=== PATIENT | female | born 1955 | race Caucasian/White ===

== ENCOUNTER 2017-01-17 06:24 | Day surgery (SDC) | payer OTHER ==
[~2017-01-17] VITALS: Ht 175.3 cm; Wt 84.6 kg
[~2017-01-17 06:24] MED LIST: ASPI81TA82 PO; LEXA5TAB PO; LORA-392 PO; MEVA40TA6 PO; NAPR250T57 PO; SPIRCAP INH; TRAM100T19 PO
[2017-01-17] MEDS ORDERED: NS 1000P @30 MLS/HR (KVO) IV SCH (07:00)
[2017-01-17] MEDS ORDERED: ESCI5TAB PO (07:41)
[2017-01-17] MEDS ORDERED: TRAM50TA PO (07:41)
[2017-01-17] MEDS ORDERED: MULT1TAB46 PO (07:41)
[2017-01-17] MEDS ORDERED: NAPR500T PO (07:41)
[2017-01-17] MEDS ORDERED: ASPI81TA11 PO (07:41)
[2017-01-17] MEDS ORDERED: FLUT1SPR14 NASAL (07:41)
[2017-01-17] MEDS ORDERED: LORA1TAB12 PO (07:41)
[2017-01-17] MEDS ORDERED: LOVA40TA PO (07:41)
[2017-01-17] MEDS ORDERED: CHOL5000 PO (07:41)
[2017-01-17] MEDS ORDERED: VENTAER INH (07:41)
[2017-01-17] MEDS ORDERED: RANI150T PO (07:41)
[2017-01-17] MEDS ORDERED: UMEC1INH INH (07:41)
[2017-01-17] MEDS ORDERED: CYCL1TAB29 PO (07:41)
[2017-01-17 07:43] VITALS: BP 137/81; PULSE 68; RESP 18; TEMP 98.1; O2SAT 99
[2017-01-17] MEDS ORDERED: HEPARIN-NS/PF INJ 500 ML ONE (08:26)
[2017-01-17] MEDS ORDERED: NITROGLYCERIN INJ 5 ML ONE (08:28)
[2017-01-17] MEDS ORDERED: HEPARIN SODIUM - IV 10,000 UNITS/10 ML VIAL ONE (08:28)
[2017-01-17] MEDS ORDERED: MIDAZOLAM HCL 2 MG/2 ML VIAL ONE (08:28)
[2017-01-17] MEDS ORDERED: BACITRACIN OINT 0.9 GM PKT TOP ONE (09:15)
[2017-01-17] MEDS ORDERED: MISC INFORMATION XX ONE (09:15)
--- NOTE | 2017-01-17 09:19 | CATHPROC ---
[facility] HIS Report Study Information Study Number Admission Scheduled Start Study Start [id number] Jan 17 2017 6:24AM 01/17/2017 Jan 17 2017 8:19AM [place] Service Cardiac Catheterization Admit Source Facility Department Other [facility] - Signwriter Physician and Clinical Staff Initial Ezio Chang Mixing Machine Attendant Denise Kyle,RN Mixing Machine Attendant Alisa Avalos RN Recorder Robert Cleveland RCIS(BS) Scrub Dianne Etienne RT(R) Procedures Performed Procedure Location (Site) Vessel Name Coronary Angiograms LCA Left Coronary Coronary Angiograms RCA Right Coronary L Heart Cath Equipment Time Electro Mechanical Technologist Description Size Mfg Part Number Used/Scraped TRANSDUCER, TRUWAVE [id number] 08:44 WONG MEEHAN * Used W/STOCKCOCK *[id number] *[id number] *[id number] 08:44 [employer] INDUSTRIES PACK, CCL CUSTOM * Used *[id number] 08:44 [employer] SUPPORT, ARTERIAL ADULT [id number] Used [id number] 08:44 [employer]nary PACER PEN, SKIN DUAL W/ RULER * Used *[id number] BAND, RADIAL COMPRESSION TR [id number] 09:02 [employer] MEDICAL 24CM Used SHORT 24 *[id number] SHEATH, FR6 RADIAL PRELUDE 08:44 [employer] FR 6 [id number] Used EASE 11CM [id number] 08:44 [employer] WIRE, EXCHANGE 260CM 3MMJ 260CM Used *[id number] 08:44 [employer]COM[employer] OMNIPAQUE, 350 MG, 150ML 150ML [id number] Used [id number] 08:44 SAENZ MEDICAL BLANKET,WARM AIR CCL * Used *[id number] Equipment Model, Serial, Lot Number and Expiration Data Description Model Number Serial Number Lot Number Expiration Date BAND, RADIAL COMPRESSION TR [id number] 11-29-2019 SHORT 24 History: Current Medications Medication Dosage/Unit Route Frequency Last Date/Time Taken ASA Statins (any) History: Allergies Allergy Reaction No Known Allergies Atorvastatin Effexor History: Risk Factors Family History of Hypertension Dyslipidemia Previous GA Previous Heart Failure Premature CAD No Yes Yes No No Prior Valve Prior PCI Prior CABG Surgery No No No Cerebrovascular Peripheral Artery Chronic Lung On Dialysis Diabetes Disease Disease Disease No No No Yes No History: Stress Tests Stress or Imaging Studies Performed Yes Standard Exercise Stress Test No Stress Echo No Stress Test SPECT Stress Test SPECT Result Stress Test SPECT Ischemia Risk/Extent Yes Positive Intermediate Stress Test CMR No Cardiac CTA Coronary Calcium Score No No History: Other Current Smoker Method Quit Packs a Day Years Used Pack Years No Cigarettes 7 Years Ago 1 30 30 Labs Hgb (g/dl) Hct (%) WBC (l/cumm) Platelets (thousands) 11.60-17.00 35.00-51.00 4.00-11.00 150.00-450.00 13.8 41.3 8.6 300 Glucose (mg/dl) BUN (mg/dl) Creatinine (mg/dl) BUN:Creatinine (1:x) 74.00-106.00 7.00-18.00 0.50-1.30 10.00-20.00 112 18 0.7 25.7 Na (meq/l) K (meq/l) 136.00-145.00 3.50-5.10 140 4.7 INR (PTT:PT) 0.90-1.10 0.9 CPK-MB (ng/ML) 0.50-3.60 Not Drawn Medication Medication Total Dose (Bolus/Oral) Medication Total Dosage/Unit 1% XYLOCAINE 10 mL FENTANYL 50 mcg HEPARIN 3000 units RADIAL COCKTAIL 5 mL (Bolus) VERSED 2 mg Medications (Bolus/Oral) Medication Time Given Dosage/Unit Administered By Reason VERSED 01/17/2017 8:47:00 AM 2 mg Alisa Avalos 2 mg VERSED given in lab by Alisa Avalos, RN in Right Radial via Peripheral IV. Ordered by Ezio Downey. FENTANYL 01/17/2017 8:48:00 AM 50 mcg Alisa Avalos 50 mcg FENTANYL given in lab by Alisa Avalos, RN in Left Antecubital via Peripheral IV. Ordered by Ezio Downey. 1% XYLOCAINE 01/17/2017 8:50:47 AM 10 mL Ezio Downey 10 mL 1% XYLOCAINE given in lab by Ezio Downey in Right Radial via Subcutaneous. RADIAL COCKTAIL 01/17/2017 8:53:24 AM 5 mL (Bolus) Ezio Downey 5 mL (Bolus) RADIAL COCKTAIL given in lab by Ezio Downey in Right Radial via Radial. Using [Soluti on Name]. Ordered by Ezio Downey. 200 MCG NITRO HEPARIN 01/17/2017 8:55:08 AM 3000 units Alisa Avalos 3000 units HEPARIN given in lab by Alisa Avalos, RN in Left Antecubital via Peripheral IV. Ordered by Ezio Downey. Medication (Drip) Medication Time Given Dosage/Unit Concentration/Unit Diluent (ml) Solution IV Solutions 01/17/2017 8:22:20 AM 0 mL (IV) 500 NaCl .9 Patient arrived on IV Solutions in Left Antecubital via Peripheral IV. Pump/Drip Flow = 20 ml/hr usin g NaCl .9. Initial Case Assessment Cardiovascular HR Rhythm NIBP Chest Pain 62 NSR 145/79 0 Edema Present Skin color Skin None Normal Warm Dry Circulatory - Right Pulses Dorsalis Pedis Femoral Radial 2 2 2 Scale (0,1,2,3,4,d) Circulatory - Left Pulses Dorsalis Pedis Femoral Radial 2 2 Scale (0,1,2,3,4,d) Circulatory - Lower Extremities Color Lower Right Color Lower Left Normal Normal Neurological State Oriented to time-place- Alert Moves all extremities person Respiration - General Respiration Rate SpO2 (%) (B/min) 16 100 Final Case Assessment Cardiovascular HR Rhythm NIBP Chest Pain 62 NSR 145/79 0 Edema Present Skin color Skin None Normal Warm Dry Circulatory - Right Pulses Dorsalis Pedis Femoral Radial 2 2 2 Scale (0,1,2,3,4,d) Circulatory - Left Pulses Dorsalis Pedis Femoral Radial 2 2 Scale (0,1,2,3,4,d) Circulatory - Lower Extremities Color Lower Right Color Lower Left Normal Normal Neurological State Oriented to time-place- Alert Moves all extremities person Respiration - General Respiration Rate SpO2 (%) (B/min) 16 100 Chronological Log Time Study Chronological Log 8:22:09 Patient arrived via Bed. 8:22:10 Patient Name, D.O.B, / Armband Verified By R.N. 8:22:11 Consent signed by the physician and the patient and verified by the Signwriter staff. 8:22:12 Pre-op and post- op instructions given; patient acknowledges understanding of instructions. 8:22:14 Allens test performed on the right radial and ulnar artery. 8:22:15 Patient has been NPO for Less than 6Hrs. 8:22:16 Skin Breakdown- 8:22:16 Patient Warmer Placed on the Table. 8:22:19 A # 20 IV was noted in the Antecubital (left). Grade = 0 8:22:20 Patient arrived on IV Solutions in Left Antecubital via Peripheral IV. Pump/Drip Flow = 20 ml/hr using NaCl .9. 8:22:21 History and physical on the chart or being dictated. Assessment: Initial Case, HR=62 BPM, Rhythm=NSR, YONL=124/79 mmhg, Chest Pain=0, Edema=None, Color=Normal, Skin = Warm, Dry Right Pulses: Yuri Ped=2, Femoral=2, Radial=2 Left Pulses: Yuri Ped=2, Femoral=2 8:22:22 Lower Right Extremities: Color=Normal Lower Left Extremities: Color=Normal Neurological: State=Alert, Ox3, GRAFF Respiration: Resp=16 B/min, LjQ4=540 % Vitals capture started with the following parameters, Patient=Adult, Interval=5 min, Initial Pre bpcdt=164 mmHg, 8:26:56 Deflation Rate=5 mmHg 8:28:12 HR=63 bpm, RMUT=492/79 mmhg, SpO2=99.0 %, Resp=16 B/min, Pain=0, Marty=10, Meza=2 8:32:36 HR=61 bpm, RLKK=261/76 mmhg, SpO2=99.0 %, Resp=14 B/min, Pain=0, Marty=10, Meza=2 8:37:33 HR=63 bpm, XUXM=578/77 mmhg, SpO2=99.0 %, Resp=15 B/min, Pain=0, Marty=10, Meza=2 8:40:31 MD arrived. 8:41:19 Right Radial and groin(s) prepped with 2% chlorhexidine, and with a 3 min. waiting time. 8:42:19 Reference ECG taken 8:42:34 Pressure channel 1 zeroed. 8:42:38 HR=64 bpm, DLGI=616/72 mmhg, LwV5=439.0 %, Resp=12 B/min 8:47:00 2 mg VERSED given in lab by Alisa Avalos, RN in Right Radial via Peripheral IV. Ordered Ezio Chiang. Time Out. Correct patient, correct procedure,correct physician, power injector not loaded with c ontrast with surgical 8:47:34 team present. Time Out Concurred by MD, individual staff in procedure 8:48:00 50 mcg FENTANYL given in lab by Alisa Avalos, YOVANA in Left Antecubital via Peripheral IV. O rdered by Ezio Downey. 8:48:12 HR=66 bpm, ZOTD=782/84 mmhg, GrU9=402.0 %, Resp=9 B/min, Pain=0, Marty=10, Meza=2 8:48:12 Case Start 8:50:47 10 mL 1% XYLOCAINE given in lab by Ezio Downey in Right Radial via Subcutaneous. 8:52:38 HR=66 bpm, NLEX=071/62 mmhg, SpO2=95.0 %, Resp=8 B/min, Pain=0, Marty=10, Meza=2 8:52:58 Access site was RIGHT Radial Artery. A SHEATH, FR6 RADIAL PRELUDE EASE 11CM FR 6 was advanced into the Radial (right) using the Percu tandev 8:53:00 technique. 5 mL (Bolus) RADIAL COCKTAIL given in lab by Ezio Downey in Right Radial via Radial. Using [S olution Name]. 8:53:24 Ordered by Ezio Downey. 200 MCG NITRO A JR 5.0 INFINITI CATHETER FR 6 was advanced over a wire. OMNIPAQUE, 350 MG, 150ML 150ML was use d for 8:54:22 injections. 3000 units HEPARIN given in lab by Alisa Avalos RN in Left Antecubital via Peripheral IV. Or dered by Shayan, 8:55:08 Ezio. Recorded Pressure: Ao, HR=66, Condition=Condition 1 8:56:42 (Aorta) Ao 118/70/91 8:57:33 HR=72 bpm, LWSY=764/74 mmhg, SpO2=94.0 %, Resp=11 B/min, Pain=0, Marty=10, Meza=2 8:57:52 The RCA was injected and visualized at various angles. OMNIPAQUE, 350 MG, 150ML 150ML used. After removing the current catheter a JL 3.5 INFINITI CATHETER FR 6 was advanced over a WIRE, EX CHANGE 260CM 8:58:00 3MMJ 260CM. 8:59:08 The LCA was injected and visualized at various angles. OMNIPAQUE, 350 MG, 150ML 150ML used. Recorded Pressure: Ao, HR=74, Condition=Condition 1 9:00:13 (Aorta) Ao 121/67/91 9:01:34 Catheter was removed 9:02:02 Case End 9:02:34 HR=72 bpm, BBSE=869/69 mmhg, SpO2=96.0 %, Resp=12 B/min, Pain=0, Marty=10, Meza=2 Assessment: Final Case, HR=62 BPM, Rhythm=NSR, HVNT=096/79 mmhg, Chest Pain=0, Edema=None, Col or=Normal, Skin = Warm, Dry Right Pulses: Yuri Ped=2, Femoral=2, Radial=2 Left Pulses: Yuri Ped=2, Femoral=2 9:02:51 Lower Right Extremities: Color=Normal Lower Left Extremities: Color=Normal Neurological: State=Alert, Ox3, GRAFF Respiration: Resp=16 B/min, UxG8=997 % Radial Compression Device Used. 12 mLs of air placed in BAND, RADIAL COMPRESSION TR SHORT 24 2 4CM. Affected 9:03:15 hand ~O2 SATURATION~ % O2 saturation. 9:06:51 No case complications noted. 9:06:52 Cine recording checked. 9:06:57 Bedside Report will be given. 9:07:00 Contrast Scanned 9:07:04 A Left Heart Cath was performed. 9:07:05 Patient moved to stretcher 9:07:43 Vitals capture stopped. End Study - Contrast Media Used In Study Contrast Total Opened (mL) Total Used (mL) Total Wasted (mL) Omnipaque 50 50 0 End Study - Maximum Contrast Load Max Contrast Load (mL) 604.2 End Study - Radiation Exposure Fluoro Time (minutes) 2.9 End Study - Patient Disposition Complications Transferred To Telemetry Bed
--- NOTE | 2017-01-17 11:16 | MA ---
cc: EZIO HOLLAND DATE OF PROCEDURE 01/17/2017 INDICATION Abnormal stress test. METHOD The risks, benefits and alternatives were discussed with the patient. The patient understood. PROCEDURE Patient was brought into the Catheterization Lab and placed on the catheterization table. The right wrist was prepped and draped in a sterile fashion. The right wrist was anesthetized with 2% lidocaine. The right radial artery was cannulated and a 6-Turkmen, 7-cm sheath was placed without difficulty. 200 mcg of intraarterial nitroglycerin and 3000 units of intravenous heparin was administered. PROCEDURE PERFORMED 1. Fluoroscopy with interpretation 2. Coronary angiography. CORONARY ANGIOGRAPHY 1. Left main is angiographically normal. 2. Left anterior descending coronary artery has mild to moderate calcium present with mild luminal irregularities, several smaller diagonal branches also with minor luminal irregularities. 3. Left circumflex also has mild to moderate calcium present but no significant obstructive disease. The obtuse marginal branch has minor luminal irregularities. 4. Right coronary has calcium present, mild to moderate. The right coronary and posterior descending branch has minor luminal irregularities. CONCLUSIONS Mild nonobstructive coronary disease. PLAN Continue with aggressive medical therapy including aspirin, statin and good blood pressure control. We will monitor closely, monitor risk for any bleeding. Hopefully she will go home later today. Ezio Holland MD SM/SSB /9:16 AM /11:04 AM
[2017-01-17] MEDS ORDERED: IOHEXOL 350 MG/ML 50 ML BTL (for Cath Lab) OTHER ONE (11:20)
--- NOTE | 2017-01-18 15:02 | EKG ---
Date Performed: 01/17/2017 Time Performed: 07:39:54 PTAGE: 61 years EKG: Sinus rhythm Anterior T wave changes are nonspecific Borderline ECG PREVIOUS TRACING : 11/09/2013 20.46 Compared to prior tracing no significant change DOCTOR: Haresh Gray Interpretating Date/Time 01/18/2017 15:01:11
== END 2017-01-17 12:45 | disposition home or self-care (01) ==
LOC: HDIC 06:24 → HCAT 06:24
PROVIDERS: ATTEND Internal Medicine
DX: R94.39 Abnormal result of other cardiovascular function study (principal); R07.89 Other chest pain; I25.10 Atherosclerotic heart disease of native coronary artery without angina pectoris; I10 Essential (primary) hypertension; E78.5 Hyperlipidemia, unspecified; J44.9 Chronic obstructive pulmonary disease, unspecified; Z87.891 Personal history of nicotine dependence
CPT/HCPCS: 86850; 86900; 86901; 93005; 93454; C1769; C1893; J1644; J2250; J3010; Q9967